=== PATIENT | male | born 1995 | race Two or more races ===

== ENCOUNTER 2021-07-05 17:25 | Emergency (ER) | payer OTHER ==
[~2021-07-05] VITALS: Ht 170.2 cm; Wt 90.7 kg
[2021-07-05 17:36] VITALS: BP 131/79
--- NOTE | 2021-07-05 17:55 | NUR ---
silicone band cut w/ pair of scissors,tolerated well
[2021-07-05] MEDS ORDERED: CEPH500C2 PO (18:07)
[2021-07-05] MEDS ORDERED: CEPHALEXIN MONOHYDRATE 500 MG CAPSULE PO ONE ×2 (18:10→18:30)
== END 2021-07-05 18:16 ==
LOC: ER 17:30
DX: S60.454A Superficial foreign body of right ring finger, initial encounter (principal); L03.011 Cellulitis of right finger; Z60.2 Problems related to living alone; W45.8XXA Other foreign body or object entering through skin, initial encounter; Y93.89 Activity, other specified; Y92.89 Other specified places as the place of occurrence of the external cause; Y99.8 Other external cause status